=== PATIENT | female | born 1945 | race Caucasian/White ===

== ENCOUNTER → 2018-04-10 | Outpatient (CLI) | payer MEDICARE | END | disposition home or self-care (01) | LOC: RAH 14:24 | PROVIDERS: ATTEND Family Medicine | DX: R92.8 Other abnormal and inconclusive findings on diagnostic imaging of breast (principal); Z98.82 Breast implant status | CPT/HCPCS: 77066 ==

== ENCOUNTER → 2019-10-08 | Outpatient (CLI) | payer MEDICARE | END | disposition home or self-care (01) | LOC: RAH 14:49 | PROVIDERS: ATTEND Family Medicine | DX: Z12.31 Encounter for screening mammogram for malignant neoplasm of breast (principal); Z98.82 Breast implant status | CPT/HCPCS: 77067 ==

== ENCOUNTER 2022-02-20 22:12 | Observation (INO) | payer MEDICARE ==
[~2022-02-20] VITALS: Ht 167.6 cm; Wt 70.6 kg
[2022-02-20 22:39] LABS: BILIRUBIN,URINE Negative (NEGATIVE); COLOR,URINE Yellow (YELLOW); GLUCOSE, URINE (UA) Negative (NEGATIVE); KETONES,URINE 40 mg/dL (NEGATIVE); LEUKOCYTE ESTERASE ,URINE Small (NEGATIVE); NITRATE,URINE Negative (NEGATIVE); OCCULT BLOOD,URINE Negative (NEGATIVE); PH,URINE 7.5 (5.0-8.0); PROTEIN,URINE POS 1+ mg/dL (NEGATIVE); UROBILINOGEN,URINE 0.2 mg/dL (0.2-1.0)
[2022-02-20 22:43] LABS: APPEARANCE,URINE CLOUDY (CLEAR)
[2022-02-20 22:56] LABS: BACTERIA,URINE Few /HPF (None Seen); RBC,URINE 0-1 /HPF (0-1)
[2022-02-20 22:57] LABS: AMORPHOUS SEDIMENT,UR Moderate /LPF (None Seen); SQUAMOUS EPITHELIAL CELL,UR Rare /HPF (0-2)
[2022-02-20 23:07] LABS: HEMATOCRIT 43.5 % (36-48); MEAN CORPUSCULAR HEMOGLOBIN 29.3 pg (27.0-33.0); MEAN CORPUSCULAR HGB CONC 32.9 g/dL (32.0-36.0); MEAN CORPUSCULAR VOLUME 89.1 fL (79-99); PLATELET COUNT (AUTO) 283 K/uL (130-400); RED BLOOD CELL COUNT(AUTO) 4.88 MIL/uL (4.00-5.50); RED CELL DISTRIBUTION WIDTH 13.6 % (11.0-15.5); WHITE BLOOD COUNT (AUTO) 10.7 K/uL (4.8-10.8)
[2022-02-20] MEDS ORDERED: ONDANSETRON 4MG INJ ONE (23:22)
[2022-02-20] MEDS ORDERED: MORPHINE 2 MG SYG ONE (23:23)
[2022-02-20 23:26] LABS: POTASSIUM 3.7 mmol/L (3.5-5.1)
[2022-02-20] MEDS ORDERED: ONDANSETRON 4MG INJ IVP ONE (23:30)
[2022-02-20] MEDS ORDERED: MORPHINE 2 MG SYG IVP ONE (23:30)
[2022-02-20 23:32] LABS: ALBUMIN 3.6 g/dL (3.5-5.0); BILIRUBIN,TOTAL 0.5 mg/dL (0.2-1.0); TOTAL PROTEIN, SERUM 7.3 g/dL (6.0-8.3)
[2022-02-20 23:46] LABS: LYMPHOCYTES % (MANUAL) 13 % (22-44); MAN.DIFF COMMENT-IMPRESSION MANUAL DIFFERENTIAL; MONOCYTES % (MANUAL) 2 % (2-9); PLATELET MORPHOLOGY COMMENT ADEQUATE; SEGMENTED NEUTROPHILS % 85 % (40-70)
[2022-02-20] MEDS ORDERED: IOHEXOL 350 MG/ML 100ML INFUS..BTL IV ONE (23:46)
[2022-02-21] MEDS ORDERED: NIFEDIPINE 10 MG CAP PO ONE (00:30)
[2022-02-21] MEDS ORDERED: ZOSYN 3.375GM +NS 50ML IV SCH (00:30)
[2022-02-21] MEDS ORDERED: HYDROMORPHONE 1 MG INJ IVP PRN (01:00)
[2022-02-21] MEDS ORDERED: ALBUTEROL 0.083% 2.5 MG/3 ML INH IH PRN (01:00)
[2022-02-21] MEDS ORDERED: ACETAMINOPHEN 650 MG SUPPOSITORY RC PRN (01:00)
[2022-02-21] MEDS ORDERED: ACETAMINOPHEN 325 MG TAB PO PRN (01:00)
[2022-02-21] MEDS: ZOSYN 3.375GM +NS 50ML IV SCH ×4 (01:00→23:36)
[2022-02-21] MEDS ORDERED: LACTULOSE 20 GM/30 ML UDCUP PO PRN (01:00)
[2022-02-21] MEDS ORDERED: ONDANSETRON 4MG INJ IVP PRN (01:00)
[2022-02-21] MEDS ORDERED: HYDRALAZINE 20MG/ML VIAL IV PRN (01:00)
[2022-02-21] MEDS ORDERED: DOCUSATE SODIUM 100 MG CAP PO PRN (01:00)
[2022-02-21] MEDS ORDERED: ATOR40TA69 PO (01:17)
[2022-02-21] MEDS ORDERED: METF-444 PO (01:17)
[2022-02-21] MEDS: 0.9%NACL 1000ML 1,000 ML IV SCH ×2 (02:11→14:13)
[2022-02-21] MEDS ORDERED: TRAZ-185 PO (02:49)
[2022-02-21] MEDS: HEPARIN 5,000 UNIT VIAL SQ SCH ×2 (03:43→11:00)
[2022-02-21 03:55] VITALS: BP 163/89
[2022-02-21] MEDS: INSULIN LISPRO 100 UNIT/ML 3ML SQ SCH ×4 (06:25→20:26)
[2022-02-21 08:00] VITALS: BP 152/71
[2022-02-21] MEDS: POLYETHYLENE GLYCOL 3350 17 GM POWD.PACK PO SCH (09:10)
[2022-02-21 11:44] VITALS: BP 139/71
[2022-02-21 15:00] VITALS: BP 148/78
[2022-02-21 15:50] VITALS: BP 146/79
[2022-02-21 20:29] VITALS: BP 143/75
[2022-02-22] VITALS (7 sets, daily range): BP systolic 146–166; BP diastolic 74–97
[2022-02-22] MEDS: 0.9%NACL 1000ML 1,000 ML IV SCH ×2 (03:40→17:00)
[2022-02-22 04:24] LABS: EOSINOPHILS % (AUTO) 2.8 % (0.0-8.0); LYMPHOCYTES % (AUTO) 33.5 % (21.0-51.0); MEAN CORPUSCULAR HEMOGLOBIN 29.1 pg (27.0-33.0); MEAN CORPUSCULAR VOLUME 90.9 fL (79-99); MONOCYTES % (AUTO) 8.3 % (3.0-13.0); NEUTROPHILS % (AUTO) 54.2 % (40.0-77.0); PLATELET COUNT (AUTO) 273 K/uL (130-400); RED CELL DISTRIBUTION WIDTH 13.9 % (11.0-15.5); WHITE BLOOD COUNT (AUTO) 4.9 K/uL (4.8-10.8)
[2022-02-22 04:45] LABS: ALBUMIN 2.8 g/dL (3.5-5.0); BILIRUBIN,TOTAL 0.5 mg/dL (0.2-1.0); CREATININE 0.7 mg/dL (0.5-1.5); MAGNESIUM 1.9 mg/dL (1.80-2.40); POTASSIUM 3.9 mmol/L (3.5-5.1)
[2022-02-22] MEDS: INSULIN LISPRO 100 UNIT/ML 3ML SQ SCH ×4 (05:03→20:39)
[2022-02-22] MEDS ORDERED: GADOTERATE MEGLUMINE 10 MMOL/20 ML VIAL IV ONE (07:13)
[2022-02-22] MEDS: ZOSYN 3.375GM +NS 50ML IV SCH ×2 (09:17→17:17)
[2022-02-22] MEDS: POLYETHYLENE GLYCOL 3350 17 GM POWD.PACK PO SCH (09:17)
[2022-02-23] MEDS: ZOSYN 3.375GM +NS 50ML IV SCH ×2 (00:09→08:24)
[2022-02-23 04:02] VITALS: BP 154/88
[2022-02-23 04:57] LABS: HEMATOCRIT 40.2 % (36-48); MEAN CORPUSCULAR HEMOGLOBIN 30.2 pg (27.0-33.0); MEAN CORPUSCULAR HGB CONC 32.8 g/dL (32.0-36.0); RED BLOOD CELL COUNT(AUTO) 4.37 MIL/uL (4.00-5.50); RED CELL DISTRIBUTION WIDTH 13.8 % (11.0-15.5); WHITE BLOOD COUNT (AUTO) 5.4 K/uL (4.8-10.8)
[2022-02-23] MEDS: INSULIN LISPRO 100 UNIT/ML 3ML SQ SCH ×3 (05:08→16:30)
[2022-02-23 05:14] LABS: CREATININE 0.8 mg/dL (0.5-1.5); MAGNESIUM 1.9 mg/dL (1.80-2.40); POTASSIUM 3.9 mmol/L (3.5-5.1)
[2022-02-23 07:50] VITALS: BP 152/97
[2022-02-23] MEDS: POLYETHYLENE GLYCOL 3350 17 GM POWD.PACK PO SCH (08:26)
[2022-02-23] MEDS ORDERED: ENOXAPARIN SODIUM 40 MG/0.4 ML SYRINGE SQ SCH (09:00)
[2022-02-23 11:24] VITALS: BP 152/88
[2022-02-23] MEDS: 0.9%NACL 1000ML 1,000 ML IV SCH (12:50)
[2022-02-23 16:00] VITALS: BP 154/80
[2022-02-23] MEDS ORDERED: AMOX-426 PO (16:24)
== END 2022-02-23 17:41 | disposition left against medical advice (07) ==
LOC: EDH 22:12 → EDHIP 02-21 00:35 → 4CH 02-21 03:04
PROVIDERS: ADMIT Internal Medicine Critical Care Medicine; ATTEND Internal Medicine Critical Care Medicine
DX: N30.00 Acute cystitis without hematuria (principal); N30.20 Other chronic cystitis without hematuria; N17.9 Acute kidney failure, unspecified; E11.65 Type 2 diabetes mellitus with hyperglycemia; I16.1 Hypertensive emergency; I10 Essential (primary) hypertension; R10.9 Unspecified abdominal pain; R77.8 Other specified abnormalities of plasma proteins; I25.10 Atherosclerotic heart disease of native coronary artery without angina pectoris; K44.9 Diaphragmatic hernia without obstruction or gangrene; M47.815 Spondylosis without myelopathy or radiculopathy, thoracolumbar region; E78.5 Hyperlipidemia, unspecified; N12 Tubulo-interstitial nephritis, not specified as acute or chronic; Z87.440 Personal history of urinary (tract) infections; Z90.710 Acquired absence of both cervix and uterus; Z96.642 Presence of left artificial hip joint; Z98.82 Breast implant status; Z79.899 Other long term (current) drug therapy; Z98.890 Other specified postprocedural states
CPT/HCPCS: 36415 ×4; 74178; 74183; 80048; 80053 ×2; 81001; 82550 ×6; 82948 ×11; 83605; 83690; 83735 ×2; 83874 ×6; 84100; 84145; 84484 ×7; 85025 ×2; 85027; 93005; 93306; 93356; 96361 ×2; 96365; 96366 ×3; 96372 ×2; 96375; 99291; A9575; G0378 ×65; J1650; J2405; J2543 ×8; J7030 ×2; Q9967

== ENCOUNTER → 2023-01-24 | Outpatient (CLI) | payer MEDICARE ==
[~2023-01-24] MED LIST: ATOR40TA69 PO; METF-444 PO; TRAZ-185 PO
== END | disposition home or self-care (01) ==
LOC: RAH 14:56
PROVIDERS: ATTEND Family Medicine
DX: Z12.31 Encounter for screening mammogram for malignant neoplasm of breast (principal)
CPT/HCPCS: 77067

== ENCOUNTER → 2024-01-27 | Outpatient (CLI) | payer MEDICARE | END | disposition home or self-care (01) | LOC: RAH 15:28 | PROVIDERS: ATTEND Family Medicine | DX: Z12.31 Encounter for screening mammogram for malignant neoplasm of breast (principal) | CPT/HCPCS: 77067 ==

== ENCOUNTER → 2024-03-09 | Outpatient (CLI) | payer MEDICARE ==
[~2024-03-09] MED LIST changes: +IOHEXOL 350 MG/ML 100ML INFUS..BTL IV ONE
== END | disposition home or self-care (01) ==
LOC: RAH 10:55
PROVIDERS: ATTEND Internal Medicine Cardiovascular Disease
DX: I25.10 Atherosclerotic heart disease of native coronary artery without angina pectoris (principal); R07.9 Chest pain, unspecified; R06.00 Dyspnea, unspecified; I10 Essential (primary) hypertension
CPT/HCPCS: 75574; Q9967

== ENCOUNTER 2024-05-29 09:17 | Day surgery (SDC) | payer MEDICARE ==
[2024-05-27 15:52] LABS: BASOPHILS # (AUTO) 0.05 K/uL (0.00-0.20); BASOPHILS % (AUTO) 0.8 % (0.0-5.0); EOSINOPHILS % (AUTO) 1.5 % (0.0-8.0); HEMATOCRIT 47.8 % (36-48); IMMATURE GRANULOCYTE ABSOLUTE 0.02 K/uL (0-1); LYMPHOCYTES # (AUTO) 1.4 K/uL (1.0-4.8); LYMPHOCYTES % (AUTO) 21.4 % (21.0-51.0); MEAN CORPUSCULAR HEMOGLOBIN 30.5 pg (27.0-33.0); MEAN CORPUSCULAR HGB CONC 33.7 g/dL (32.0-36.0); MEAN CORPUSCULAR VOLUME 90.5 fL (79-99); MONOCYTES # (AUTO) 0.4 K/uL (0.1-1.0); MONOCYTES % (AUTO) 6.5 % (3.0-13.0); NEUTROPHILS # (AUTO) 4.6 K/uL (1.8-7.7); NEUTROPHILS % (AUTO) 69.5 % (40.0-77.0); PLATELET COUNT (AUTO) 260 K/uL (130-400); RED BLOOD CELL COUNT(AUTO) 5.28 MIL/uL (4.00-5.50); RED CELL DISTRIBUTION WIDTH 12.5 % (11.0-15.5); WHITE BLOOD COUNT (AUTO) 6.6 K/uL (4.8-10.8)
[2024-05-27 16:02] LABS: CREATININE 1.1 mg/dL (0.5-1.0); POTASSIUM 4.9 mmol/L (3.5-5.1)
[2024-05-27 16:03] LABS: INR 1.04 (0.85-1.15); PROTHROMBIN TIME 11.2 SEC (9.6-11.6)
[2024-05-27 16:14] VITALS: BP 145/81; PULSE 68; RESP 17
[2024-05-27 16:34] LABS: B-TYPE NATRIURETIC PEPTIDE 30 pg/mL (0-100)
[~2024-05-29] VITALS: Ht 167.6 cm; Wt 68.9 kg
[2024-05-29] VITALS (9 sets, daily range): BP systolic 135–163; BP diastolic 64–78; PULSE 51–70; RESP 12–17
[~2024-05-29 09:17] MED LIST changes: +ASCO100031 PO; +CALC-1252 PO; +CETI10CA5 PO; +CHOL-34 PO; +D-MA500C PO; +DONE5TAB33 PO; +EZET10TA48 PO; +FLUT16H NASAL; -IOHEXOL 350 MG/ML 100ML INFUS..BTL IV ONE; +LISI10TA24 PO; +MAGN400C PO; +SERT-438 PO; +SOLI10TA7 PO; +TIMO1DRO9 OP; +ZINC50TA64 PO
[2024-05-29 10:43] LABS: APPEARANCE,URINE CLEAR (CLEAR); BILIRUBIN,URINE NEGATIVE (NEGATIVE); COLOR,URINE LIGHT-YELLOW (YELLOW); GLUCOSE, URINE (UA) NEGATIVE (NEGATIVE); KETONES,URINE NEGATIVE (NEGATIVE); LEUKOCYTE ESTERASE ,URINE 25 Leu/uL (NEGATIVE); NITRATE,URINE 2+ (NEGATIVE); OCCULT BLOOD,URINE NEGATIVE (NEGATIVE); PROTEIN,URINE NEGATIVE (NEGATIVE); UROBILINOGEN,URINE 0.2 mg/dL (0.2-1.0)
[2024-05-29 10:56] LABS: ADD UA MICROSCOPIC YES
[2024-05-29] MEDS ORDERED: LIDOCAINE HCL 400MG/20ML VIAL ONE (14:39)
[2024-05-29] MEDS ORDERED: SODIUM BICARB 50MEQ 50ML VIAL 50 ML ONE (14:40)
[2024-05-29] MEDS ORDERED: IOHEXOL 350 MG/ML 100ML INFUS..BTL IV ONE (14:40)
[2024-05-29] MEDS ORDERED: NITROGLYCERIN 50MG VIAL ONE (14:40)
[2024-05-29] MEDS ORDERED: HEPARIN 10,000 UNIT/10ML (1,000 UNIT/ML) VIAL ONE (14:40)
[2024-05-29] MEDS ORDERED: IOHEXOL-350 50ML VIAL IV ONE (14:44)
[2024-05-29] MEDS ORDERED: MEPERIDINE-PF 25 MG/ML SYG ONE ×2 (14:58→15:06)
[2024-05-29] MEDS ORDERED: MIDAZOLAM HCL 1 MG/ML 2ML VIAL ONE ×2 (14:59→15:06)
[2024-05-29] MEDS ORDERED: NICARDIPINE 25MG INJ IV ONE (15:01)
[2024-05-29] MEDS ORDERED: GLUCAGON 1MG KIT 1 MG ML IM PRN (16:00)
[2024-05-29] MEDS ORDERED: 0.9%NACL 1000ML 1,000 ML IV SCH (16:00)
[2024-05-29] MEDS ORDERED: DEXTROSE 50%-WATER 50 ML DISP.SYRIN IV PRN (16:00)
[2024-05-29] MEDS ORDERED: INSULIN HUMULIN R 100 UNIT/ML 3ML SQ SCH (16:30)
[2024-05-29] MEDS ORDERED: AEC81 PO (17:18)
== END 2024-05-29 20:10 | disposition home or self-care (01) ==
LOC: DAH 09:17
PROVIDERS: ATTEND Internal Medicine Cardiovascular Disease
DX: I25.118 Atherosclerotic heart disease of native coronary artery with other forms of angina pectoris (principal); I10 Essential (primary) hypertension; E78.5 Hyperlipidemia, unspecified; E11.9 Type 2 diabetes mellitus without complications; G47.00 Insomnia, unspecified; Z79.01 Long term (current) use of anticoagulants; Z79.84 Long term (current) use of oral hypoglycemic drugs; Z79.899 Other long term (current) drug therapy
CPT/HCPCS: 80048; 83880; 85025; 85610; 85730; 36415; 71045; 93005; 93458; 87086 ×3; 87186 ×2; 82948; 81001; 96360; 96361; C1769; A4649; C1894; J3490 ×4; J1644 ×2; J2250 ×2; J2175 ×2; Q9967; A4215; A4222; A6260; A4221; A4663; A4216; A6206; A4606; Q9965; A4223 ×3; 99156; 99157

== ENCOUNTER → 2024-10-08 | Outpatient (CLI) | payer MEDICARE ==
[~2024-10-08] MED LIST changes: +AEC81 PO; +AMIO200T44 PO; +BENZ-226 PO; +CEFT2VIA12 IVPB; +FURO20TA6 PO; +IOHEXOL 350 MG/ML 100ML INFUS..BTL IV ONE; -LISI10TA24 PO; +LOSARTAN PO; +METO25 PO; +metoPROLOL tartRATE 1 MG/ML 5ML VIAL IV ONE
--- NOTE | 2024-10-08 15:44 | HMCIMG ---
CT CARDIAC ANGIO W/CONT. CCTA REASON: ISCHEMIC CARDIOMYOPATHY COMPARISON: None TECHNIQUE: Images are obtained through the heart in the axial plane before and during bolus IV contrast infusion, 100 cc Omnipaque 350. 2-D and 3-D multiplanar reconstruction images were then performed. The injection had to be repeated once due to motion artifact on the first sequence, total contrast volume was 200 cc. FINDINGS: This dictation is for the noncardiac findings only. Cardiac and coronary artery findings are reported separately. Visualized portions of the lungs are clear. There is normal-appearing pulmonary interstitium. There is no hilar or mediastinal lymphadenopathy. Chest wall structures appear unremarkable. IMPRESSION: 1. Unremarkable noncardiac portions of CT cardiac angiography.
--- NOTE | 2024-10-10 13:16 | HMCSR ---
APPROVED REPORT EXAM: Two-dimensional and M-mode echocardiogram with Doppler and color Doppler. INDICATION ICD: I25.5 Ischemic cardiomyopathy 2D Dimensions RVDd4.2 cmLVEF(%)58.1 (>50%)LVED Vol(simp.)102.0 mL IVSd1.1 (0.7-1.1cm)FS(%)30 %LVES Vol(simp.)62.0 mL LVDd3.9 (3.8-5.6cm)Ao Root(2D)3.3 (2.0-3.7cm)LVEF(%, simp.)39 % PWd1.1 (0.7-1.1cm)LVOT diam1.9 (1.8-2.4cm)LA ESV INDEX (BP)41.59 mL/m2 LVDs2.7 (2.5-4.0cm)IVC diam1.2 cm Aortic Valve AoV Vmax1.0 m/Robles Peak GR3.9 mmHgLVOT Vmax0.8 m/s AoV VTI0.3 mAo Mean GR2.0 mmHgLVOT VTI0.20 m JENNY (VMAX)2.2 cm2AVA (VTI) 2.2 cm2 Mitral Valve MV E Vmax60.8 cm/sDECEL Njja602 ms MV A Vmax46.8 cm/sP 1/2 T65 ms E/A ratio1.3MVA (PHT)3.4 cm2 MR Max PG75 mmHg TDI E/E' Ueblxa02.6E/E' Jngklit10.9 Pulmonary Valve PV Vmax0.6 m/sPV VTI0.14 mPV Mean GR1 mmHg PV Peak GR1.6 mmHgPI End Kat. Jamil 1.2 cm/s Tricuspid Valve TR Vmax3.2 m/sRAP (EST) 3 umEaMAGF79.8 mmHg TR Peak GR39.8 mmHg Left Ventricle Left ventricular cavity size is normal. Apical dyskinesis, consistent with apical aneurysm. There is borderline to mild concentric left ventricular hypertrophy. LVEF is 35%. An apical left ventricular t hrombus is present. Grade 2 diastolic dysfunction. Right Ventricle The right ventricle is normal size. Right ventricular systolic function is moderately reduced. Atria The left atrium is mildly dilated. Possible PFO is noted. The right atrium is moderately dilated. Aortic Valve Aortic valve is trileaflet. Aortic valve leaflets are sclerotic but open well. Trace aortic regurgita tion. There is no aortic valvular stenosis. Mitral Valve Mitral valve leaflets are mildly sclerotic but opens well. Mitral regurgitation is trace. There is no mitral valve stenosis. Tricuspid Valve The tricuspid valve leaflets appear normal. There is moderate tricuspid regurgitation. Right ventricu lar systolic pressure is estimated at 40-50 mmHg. Pulmonic Valve Pulmonic valve is not well visualized. There is trace to mild valvular regurgitation. Great Vessels The aortic root is normal in size. The IVC is normal in size and collapses >50% with inspiration. Pericardium No pericardial effusion. Conclusion Left ventricular cavity size is normal. There is borderline to mild concentric left ventricular hypertrophy. LVEF is 35%. Grade 2 diastolic dysfunction. 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 The right ventricle is normal size. Right ventricular systolic function is moderately reduced. The left atrium is mildly dilated. The right atrium is moderately dilated. Aortic valve is trileaflet. Aortic valve leaflets are sclerotic but open well. Trace aortic regurgitation. There is no aortic valvular stenosis. Mitral valve leaflets are mildly sclerotic but opens well. Mitral regurgitation is trace. There is moderate tricuspid regurgitation. Right ventricular systolic pressure is estimated at 40-50 mmHg. There is trace to mild valvular regurgitation. The aortic root is normal in size. The IVC is normal in size and collapses >50% with inspiration. No pericardial effusion.
--- NOTE | 2024-10-12 11:43 | CARDIOLOGY ---
RAD REPORT: [facility] CT ANGIO RADIOLOGY REPORT: CORONARY CT ANGIOGRAPHY DATE: Oct 12, 2024 QUALITY: Excellent CLINICAL HISTORY AND INDICATION: [ischemic CM, coronary artery bypass graft patency ] TECHNIQUE: After obtaining a preliminary short range air defense artillery image, contrast imaging performed on an [employer] [id number] scanner. A dedicated, limited window, coronary imaging protocol was used, with single breath-hold, retrospective ECG gating, and automated arrhythmia rejection. 100 cc of low osmolar contrast agent: Omnipaque 350 was delivered via a 18-gauge IV catheter in the right antecubital fossa, using a power injector and followed by 60 cc of normal saline bolus as a chaser. Collimated images were reformatted at 0.5 mm intervals, and sent to an offline independent workstation for interpretation, using 3D anatomic reconstructions: Curved multiplanar reconstructions, maximum intensity projections, and multiplanar imaging. 10 mg IV metoprolol was administered prior to scanning. 0.8 mg SL nitroglycerin was given. CORONARY ARTERY DESCRIPTIONS: The coronary arteries arise in normal position. Left main coronary artery: Normal caliber vessel that bifurcates into the LAD and LCx. No stenosis. Left anterior descending coronary artery: Normal caliber vessel and gives rise to diagonal and septal branches. There is calcified plaque in the proximal to mid LAD with 40-50% stenosis. The artery tapers into a small vessel. Left circumflex coronary artery: Normal caliber, co-dominant and gives rise to a large OM branch. Right coronary artery: Small caliber, co-dominant vessel giving rise to the PL and PDA branches. [employer]SACTIONAL ATTORNEY mid RCA. CORONARY ARTERY BYPASS GRAFT DESCRIPTIONS: Atretic RAY to LAD. SVG to LAD not seen. Patent SVG to OM1. Patent SVG to RCA. Thoracic Aorta: Normal diameter. LV apical thrombus present, can confirm with delayed contrast scanning if requested. Ellen Rowan MD Cardiovascular Disease [facility] ELLEN ROWAN MD Oct 12, 2024 11:43
== END | disposition home or self-care (01) ==
LOC: RAH 13:17
PROVIDERS: ATTEND Internal Medicine Cardiovascular Disease
DX: I08.8 Other rheumatic multiple valve diseases (principal); I25.10 Atherosclerotic heart disease of native coronary artery without angina pectoris; I25.5 Ischemic cardiomyopathy; Z95.1 Presence of aortocoronary bypass graft
CPT/HCPCS: 93306; 75574; J3490; Q9967 ×2

== ENCOUNTER → 2024-12-15 | Outpatient (CLI) | payer MEDICARE ==
[~2024-12-15] MED LIST changes: -IOHEXOL 350 MG/ML 100ML INFUS..BTL IV ONE; -metoPROLOL tartRATE 1 MG/ML 5ML VIAL IV ONE
--- NOTE | 2024-12-16 07:42 | HMCSR ---
APPROVED REPORT EXAM: Two-dimensional and M-mode echocardiogram with Doppler and color Doppler. INDICATION ICD: I10.0 Essential (primary) Hypertension 2D Dimensions RVDd3.2 cmLVEF(%)40.0 (>50%)LVED Vol(simp.)87.0 mL IVSd1.1 (0.7-1.1cm)Ao Root(2D)3.1 (2.0-3.7cm)LVES Vol(simp.)53.0 mL LVDd4.2 (3.8-5.6cm)LVOT diam1.9 (1.8-2.4cm)LVEF(%, simp.)39 % PWd1.0 (0.7-1.1cm)IVC diam1.4 cmLA ESV INDEX (BP)28.86 mL/m2 LVDs2.6 (2.5-4.0cm) Aortic Valve AoV Vmax0.9 m/Robles Peak GR3.5 mmHgLVOT Vmax0.9 m/s AoV VTI0.2 mAo Mean GR1.9 mmHgLVOT VTI0.18 m JENNY (VMAX)2.5 cm2AVA (VTI) 2.5 cm2 Mitral Valve MV E Vmax35.1 cm/sDECEL Fybi460 ms MV A Vmax63.2 cm/sP 1/2 T117 ms E/A ratio0.6MVA (PHT)1.9 cm2 TDI E/E' Wrtsxh80.9E/E' Lateral5.4 Pulmonary Valve PV Vmax0.7 m/sPV VTI0.13 mPV Mean GR1 mmHg PV Peak GR2.0 mmHgPI End Kat. Jamil 1.3 cm/s Tricuspid Valve TR Vmax2.5 m/sRAP (EST) 3 xqTyCYDX51.9 mmHg TR Peak GR24.9 mmHg Left Ventricle Left ventricular cavity size is normal. Apical akinesis to dyskinesis. There is borderline left ventr icular hypertrophy. LVEF is 40%. An apical thrombus is noted, and appears smaller when compared to th e previous study. Grade 1 diastolic dysfunction Right Ventricle The right ventricle is normal size. Right ventricular systolic function is moderately reduced. Atria The left atrium size is normal. The right atrium is mildly dilated. Aortic Valve Aortic valve is trileaflet. Aortic valve leaflets are sclerotic but open well. Trace aortic regurgita tion. There is no aortic valvular stenosis. Mitral Valve Mitral valve leaflets are mildly sclerotic but open well. Mitral regurgitation is trace. There is no mitral valve stenosis. Tricuspid Valve The tricuspid valve leaflets appear normal. There is mild tricuspid regurgitation. Pulmonic Valve Pulmonic valve is not well visualized. There is trace to mild valvular regurgitation. Great Vessels The aortic root is normal in size. The IVC is normal in size and collapses >50% with inspiration. Pericardium No pericardial effusion. Conclusion Left ventricular cavity size is normal. There is borderline left ventricular hypertrophy. LVEF is 40%. Grade 1 diastolic dysfunction Apical akinesis to dyskinesis. An apical thrombus is noted, and appears smaller when compared to the previous study. The right ventricle is normal size. Right ventricular systolic function is moderately reduced. The left atrium size is normal. The right atrium is mildly dilated. Aortic valve is trileaflet. Aortic valve leaflets are sclerotic but open well. Trace aortic regurgitation. Mitral valve leaflets are mildly sclerotic but open well. Mitral regurgitation is trace. There is mild tricuspid regurgitation. There is trace to mild valvular regurgitation. The aortic root is normal in size. The IVC is normal in size and collapses >50% with inspiration. No pericardial effusion.
== END | disposition home or self-care (01) ==
LOC: SHCH 14:19
PROVIDERS: ATTEND Internal Medicine Cardiovascular Disease
DX: I08.8 Other rheumatic multiple valve diseases (principal); I11.9 Hypertensive heart disease without heart failure
CPT/HCPCS: 93306

== ENCOUNTER → 2025-05-07 | Outpatient (CLI) | payer MEDICARE | END | disposition home or self-care (01) | LOC: RAH 14:44 | PROVIDERS: ATTEND Family Medicine | DX: Z12.31 Encounter for screening mammogram for malignant neoplasm of breast (principal) | CPT/HCPCS: 77067 ==